=== PATIENT | female | born 1985 | race African-American/Black ===

== ENCOUNTER 2017-11-23 01:58 | Emergency (ER) | payer SELFPAY ==
[~2017-11-23] VITALS: Ht 165.1 cm; Wt 82.7 kg
[~2017-11-23 01:58] MED LIST: AMOXICILLIN500 MG OR; AMOXICILLIN500 MG PO; AMOXIL500 MG OR; ATIVAN0.5 MG OR; ATIVAN0.5 MG PO; ATUSS DS OR; AUGMENTIN875TAB PO; AVIDOXY100 MG PO; CIPRO500 MG OR; CIPROFLOXACN500 MG PO; DEPO-PROVER150 MG/ML IM; DONATUSSI8 PO; FLAGYL500 MG PO; FLEXERIL PO; GENTAMICIN SULF5 ML OP; IRON COMPLEX OR; LORTAB 5 OR; LORTAB 5-325 MG1 TAB PO; LORTAB 7.57.5 MG OR; METHERGINE0.2 MG PO; MOTRIN800 MG/TAB PO; MUCINEX D1 TAB PO; MULTIVITAMIN PO; NAPROSYN500 MG PO; NAPROXEN375 MG OR; NO CURRENT MEDS; NO HOME MEDS; OB COMPLET2 OR; ORAL CONTRACEPTIVE; PRENATA3 OR; PREVACID30 M3 PO; SLOW FE142 MG PO; TORADOL OR; TORADOL PO; ULTRAM50 M1 OR; ULTRAM50 M1 PO; ULTRAM50 MG PO; ZITHROMAX250 MG PO; ZOFRAN ODT4 MG OR; ZOFRAN ODT4 MG PO; ZOFRAN4 MG/TAB PO; [UNRECOGNIZED DRUG - REMARK]
[2017-11-23 02:50] LABS: HEMATOCRIT 36.4 % (37.0-47.0); HEMOGLOBIN 11.7 g/dl (12.0-16.0); IMMATURE GRANULOCYTES 0.2 % (0.0-5.0); MEAN CORPUSCULAR HGB 27.3 pG CALC (26.0-32.0); MEAN CORPUSCULAR HGB CONC 32.1 g/L CALC (32.0-36.0); NEUT# 2.4 thou/uL (2.00-7.15); RED BLOOD COUNT 4.28 mill/uL (4.20-5.60)
[2017-11-23 02:59] LABS: ALBUMIN 4.1 g/dL (3.2-5.0); ALKALINE PHOSPHATASE 59 u/l (38-126); ANION GAP 14 (6-22 (CALC)); BILIRUBIN, TOTAL 0.5 mg/dL (0.0-1.4); BUN 10 mg/dL (7-17); BUN/CREATININE RATIO 15 (12-20 (CALC)); CARBON DIOXIDE 24 mmol/l (22-30); CHLORIDE 107 mmol/l (95-108); CREATININE 0.7 mg/dL (0.5-1.0); GFR > 60 ML/MIN (>=60 (CALC)); GFR FOR AFR.AMER. > 60 ML/MIN (>=60 (CALC)); SGOT/AST 22 u/l (14-36); SGPT/ALT 20 u/l (9-52); SODIUM 141 mmol/l (137-146); TOTAL PROTEIN 7.9 g/dL (6.3-8.2)
[2017-11-23 03:11] LABS: MYOGLOBIN 22 ng/mL (0 - 62)
[2017-11-23] MEDS ORDERED: NAPROSYN500 MG PO (03:18)
[2017-11-23] MEDS ORDERED: XANAX0.25 MG PO (03:18)
[2017-11-23 03:40] VITALS: BP 120/71
== END 2017-11-23 03:49 | disposition home or self-care (01) | DRG 313 ==
LOC: ED 01:58
PROVIDERS: Emergency Medicine
DX: R07.89 Other chest pain (principal); F41.9 Anxiety disorder, unspecified

== ENCOUNTER 2018-01-23 12:30 | Emergency (ER) | payer OTHER ==
[~2018-01-23] VITALS: Ht 165.1 cm; Wt 83.0 kg
[~2018-01-23 12:30] MED LIST changes: +XANAX0.25 MG PO
[2018-01-23] MEDS ORDERED: AMOXICILLIN500 MG PO (12:52)
[2018-01-23] MEDS ORDERED: ULTRAM50 M1 PO (12:52)
[2018-01-23 13:04] VITALS: BP 124/74
== END 2018-01-23 13:04 | disposition home or self-care (01) ==
LOC: ED 12:30
DX: K04.7 Periapical abscess without sinus (principal); F41.9 Anxiety disorder, unspecified; K08.89 Other specified disorders of teeth and supporting structures; H92.02 Otalgia, left ear

== ENCOUNTER 2021-07-09 01:03 | Emergency (ER) | payer SELFPAY ==
[~2021-07-09] VITALS: Ht 165.1 cm; Wt 93.0 kg
[2021-07-09 01:10] VITALS: BP 144/98
[2021-07-09 01:36] LABS: HEMATOCRIT 38.5 % (37.0-47.0); MEAN CELL VOLUME 83.5 fL CALC (80.0-100.0); MEAN CORPUSCULAR HGB CONC 31.2 g/dL CAL (32.0-36.0); NEUT# 2.96 thou/uL (2.00-7.15); RED BLOOD COUNT 4.61 mill/uL (4.20-5.60); RED CELL DISTRI WIDTH 14.7 % (11.5-15.5)
[2021-07-09 01:51] LABS: ALBUMIN 4.5 g/dL (3.2-5.0); ALKALINE PHOSPHATASE 66 u/l (38-126); AMYLASE 124 u/l (30-110); ANION GAP 12 (6-22 (CALC)); BILIRUBIN, TOTAL 0.5 mg/dL (0.0-1.4); BUN 11 mg/dL (7-17); BUN/CREATININE RATIO 13 (12-20 (CALC)); CARBON DIOXIDE 24 mmol/l (22-30); CHLORIDE 106 mmol/l (95-108); CREATININE 0.8 mg/dL (0.5-1.0); GFR > 60 ML/MIN (>=60 (CALC)); GFR FOR AFR.AMER. > 60 ML/MIN (>=60 (CALC)); LIPASE 123 u/l (23-300); POTASSIUM 3.7 mmol/l (3.5-5.1); SGOT/AST 30 u/l (14-36); SODIUM 139 mmol/l (137-146); TOTAL PROTEIN 8.7 g/dL (6.3-8.2)
[2021-07-09 02:00] VITALS: BP 123/83
[2021-07-09 02:30] VITALS: BP 114/81
== END 2021-07-09 02:44 | disposition home or self-care (01) | DRG 103 ==
LOC: ED 01:03
DX: G43.909 Migraine, unspecified, not intractable, without status migrainosus (principal); F41.9 Anxiety disorder, unspecified; Z20.822 Contact with and (suspected) exposure to COVID-19

== ENCOUNTER 2022-05-12 21:46 | Emergency (ER) | payer SELFPAY ==
[~2022-05-12] VITALS: Ht 160 cm; Wt 90.0 kg
[2022-05-12] MEDS ORDERED: ALLEGRA-D 2424 HOUR PO (23:31)
[2022-05-13 00:10] VITALS: BP 128/79
== END 2022-05-13 00:10 | disposition home or self-care (01) | DRG 153 ==
LOC: ED 21:46
DX: J06.9 Acute upper respiratory infection, unspecified (principal)